=== PATIENT | female | born 1990 | race Caucasian/White ===

== ENCOUNTER 2021-12-05 23:48 | Emergency (ER) | payer BC ==
[~2021-12-05] VITALS: Ht 162.6 cm; Wt 65.9 kg
[2021-12-05] MEDS ORDERED: diphenhydrAMINE 50 mg/ml inj IM ONE (23:50)
[2021-12-05] MEDS ORDERED: LORazepam 2 mg/ml vial IM ONE (23:50)
[2021-12-05] MEDS ORDERED: haloperidol lactate 5mg/ml inj IM ONE (23:50)
[2021-12-06] MEDS ORDERED: MIDAZolam 5mg/ml 2ml vial IV ONE (00:05)
[2021-12-06 02:59] LABS: BASOPHILS % (AUTO) 0.4 % (0-1); EOSINOPHILS # (AUTO) 0.1 X10'3 (0-0.9); EOSINOPHILS % (AUTO) 1.2 % (0-6); HEMATOCRIT 35.7 % (35.0-45.0); HEMOGLOBIN 12.5 g/dl (12.0-16.0); LYMPHOCYTES # (AUTO) 1.6 X10'3 (1.1-4.8); LYMPHOCYTES % (AUTO) 26.3 % (21-51); MEAN CORPUSCULAR HEMOGLOBIN 33.2 PG (27.0-31.0); MEAN CORPUSCULAR VOLUME 94.9 FL (78-98); MEAN PLATELET VOLUME 6.3 FL (7.4-10.4); MONOCYTES # (AUTO) 0.6 X10'3 (0-0.9); MONOCYTES % (AUTO) 9.1 % (2-12); NEUTROPHILS # (AUTO) 3.8 X10'3 (1.8-7.7); PLATELET COUNT 274 X10'3 (140-440); RED BLOOD COUNT 3.76 X10'6 (4.20-5.60); RED CELL DISTRIBUTION WIDTH 13.7 % (11.5-14.5); WHITE BLOOD COUNT 6.1 X10'3 (4.5-11.0)
[2021-12-06 03:10] LABS: ALANINE AMINOTRANSFERASE 34 U/L (12-78); ALBUMIN 3.5 G/DL (3.4-5.0); ALBUMIN/GLOBULIN RATIO 1.2 (1.1-1.5); ALKALINE PHOSPHATASE 56 IU/L (46-116); ANION GAP 10 (8-16); ASPARTATE AMINO TRANSFERASE 28 U/L (10-37); BILIRUBIN,TOTAL 0.2 MG/DL (0.1-1.0); BLOOD UREA NITROGEN 12 MG/DL (7-18); BUN/CREATININE RATIO 18.5 (6.6-38.0); CALCIUM 8.4 MG/DL (8.5-10.1); CHLORIDE 108 MMOL/L (99-107); CREATININE 0.65 MG/DL (0.40-0.90); GLUCOSE 102 MG/DL (70-104); POTASSIUM 3.5 MMOL/L (3.5-5.1); SODIUM 142 MMOL/L (135-145); TOTAL PROTEIN 6.5 G/DL (6.4-8.2); eGFR > 90 ML/MIN
[2021-12-06 03:28] LABS: ETHANOL < 0.010 GM/DL (0.0-0.010)
[2021-12-06 08:39] VITALS: BP 121/81
[2021-12-06 09:59] LABS: CLARITY,URINE SLIGHTLY CLOUDY (Clear); COLOR,URINE YELLOW (Yellow); GLUCOSE, URINE NEGATIVE (Neg); KETONES,URINE NEGATIVE (Neg); LEUKOCYTE ESTERASE ,URINE NEGATIVE (Neg); NITRITES, URINE NEGATIVE (Neg); OCCULT BLOOD,URINE NEGATIVE (Neg); PROTEIN,URINE NEGATIVE (Neg); UROBILINOGEN,URINE 0.2 E.U/dL (0.2-1.0)
--- NOTE | 2021-12-06 10:00 | NUR ---
pt awake, appropriate, ambulated to br. tolerated well.
[2021-12-06 10:01] LABS: URINE HCG NEGATIVE (NEG)
[2021-12-06 10:02] LABS: UA COLLECTION TYPE CLN CATCH MIDSTREAM
[2021-12-06 10:05] LABS: BACTERIA,URINE 3+ /HPF (Neg); MUCUS STRANDS MODERATE /LPF (Neg); RBC,URINE NONE SEEN /HPF (0-2); SQUAMOUS EPITHELIAL CELL,UR MANY /LPF (FEW); WBC,URINE 0-4 /HPF (0-4)
[2021-12-06 10:12] LABS: URINE AMPHETAMINE SCREEN NEGATIVE (Neg); URINE BARBITUATE SCREEN NEGATIVE (Neg); URINE BENZODIAZEPINES SCREEN POSITIVE (Neg); URINE CANNABINOID SCREEN POSITIVE (Neg); URINE COCAINE SCREEN NEGATIVE (Neg); URINE METHADONE SCREEN NEGATIVE (Neg); URINE OPIATE SCREEN NEGATIVE (Neg); URINE PHENCYCLIDINE SCREEN NEGATIVE (Neg)
--- NOTE | 2021-12-06 12:01 | NUR ---
PACKET SENT [id number]
--- NOTE | 2021-12-06 13:30 | NUR ---
pt ate lunch with good appetite. 100%
== END 2021-12-06 14:47 | disposition home or self-care (01) ==
LOC: ER 23:48
DX: F31.2 Bipolar disorder, current episode manic severe with psychotic features (principal); F12.90 Cannabis use, unspecified, uncomplicated
CPT/HCPCS: 36415; 80053; 80305; 80320; 81001; 81025; 84443; 85025; 96372; 96374; 99284; J1200; J1630; J2250

== ENCOUNTER 2024-12-05 00:18 | Emergency (ER) | payer BC ==
[~2024-12-05] VITALS: Ht 154.9 cm; Wt 67.6 kg
[2024-12-05 00:27] VITALS: RESP 17
--- NOTE | 2024-12-05 00:35 | Physician Documentation ---
History of Present Illness ~ Stated Complaint: HIGH BP/SHAKES/VISION ISSUES Time Seen by MD: 00:27 HPI This is a 34-year-old female who was recently diagnosed with a hypotension, started on hypotensive med and clonidine, who presents for evaluation of markedly elevated blood pressure. She was not [facility], visiting with friends, when she developed a posterior headache, dizziness/disequilibrium, check her blood pressure and it was elevated. She continued to check going to continue to rise. Denies any chest pain, denies any difficulty breathing, denies any abdominal pain. She was worried that she might be having a stroke and presented to our emergency department. She denies any lateralizing signs when inquired in plain Latvian. She does not smoke, does not drink, does not do drugs Medication Reconciliation Allergies: Coded Allergies: No Known Allergies (Unverified , 12/06/21) Past Medical History Past Medical History: Bipolar Drug Use: marijuana Lives with: Spouse Lives In: Home Review of Systems ROS 10 point review of systems was performed and unless noted above in HPI is negative for acute process/complaint. Physical Exam Physical Exam GENERAL: Awake, alert, oriented, GCS 15, no apparent distress, non-toxic appearing, answers questions, follows commands appropriately. Examined in triage, accompanied by significant other HEENT: Atraumatic, normocephalic, pupils equal, extraocular muscles intact, sclerae anicteric, mucus membranes moist, oropharynx is clear, no stridor. NECK: supple, full active range of motion, trachea midline, no thyromegaly, no lymphadenopathy, no JVD. CARDIOVASCULAR: regular rate/rhythm, no murmurs/gallops/rubs, Pulses are 2+ in all extremities and symmetric. Capillary refill less than 2 seconds. PULMONARY: Nonlabored, good air movement ,no respiratory distress, speaking in full sentences, clear to auscultation bilaterally, no wheezing, no ronchi, no rales, no accessory muscle use. GASTROINTESTINAL: Soft, non-tender, non-distended, normal active bowel sounds, no organomegaly, no pulsatile masses, no CVA tenderness. NEUROLOGIC: Lucid with normal mental status. She has a preserved ischial symmetry, cranial nerves two through 12 are intact. Bilateral upper extremity and lower extremity 5/5 strength in all major muscle groups. Preserved sensation equal and symmetric. Normal [id number]. Normal gait. MUSCULOSKELETAL: There is full range of motion of all extremities. There is no joint pain or joint swelling or joint erythema. There is no muscle pain or tenderness or swelling. EXTREMITIES: warm, well-perfused, no cyanosis, no clubbing, no edema, no acute deformities. Skin: warm, dry, no rashes or lesions, no jaundice, no petechiae orpurpura. No ecchymosis. PSYCHIATRIC: Extremely anxious affect, normal insight, normal concentration. Focused exam: [] Progress Results/Orders Results/Orders Orders - ASPEN BHATIA DO Ct Head (12/05/24 00:29) Ketorolac Trometh 30mg/Ml Vial (Toradol (12/05/24 04:00) Completed Orders - ASPEN BHATIA DO Electrocardiogram (12/05/24 00:29) Cbc/Diff (12/05/24 00:29) PBNP (12/05/24 00:29) MG (12/05/24 00:29) Ct Head (12/05/24 00:) Hs Troponin I W Calculations (12/05/24 00:29) CMP (12/05/24 00:29) Hcg Serum Ql (12/05/24 00:29) Hcg, Ur Ql (12/05/24 00:29) Ethanol (12/05/24 00:29) Drug Screen, Urine (12/05/24 00:29) Ua W/Microscopic, Cult If Ind (12/05/24 00:41) Potassium Bicarb 20meq Eff Tab (Effer-K (12/05/24 02:00) Potassium Bicarb 20meq Eff Tab (Effer-K (12/05/24 02:00) Potassium Cl Sr Tablet (K-Dur Tablet) (12/05/24 02:54) Medications Received in ER Medications (Trade) Dose Ordered Sig/Lynne Route PRN Reason Start Time Stop Time Status Last Admin Dose Admin (K-DUR tablet) 60 meq ONCE STAT PO 12/05/24 02:54 12/05/24 02:55 DC 12/05/24 03:14 60 MEQ Vital Signs 12/05/24 12/05/24 12/05/24 00:27 02:45 02:56 Temp 97.8 97.8 Pulse 75 67 Resp 17 B/P (MAP) 188/117 150/101 (117) Pulse Ox 100 98 O2 Flow Rate 0 0 Laboratory Tests Test 12/05/24 00:41 12/05/24 00:45 Urine Specimen Description Cln catch midstream Urine Color Yellow Urine Clarity Clear Urine pH 7.0 Urine Specific [place] <=1.005 Urine Protein Negative Urine Glucose (UA) Negative Urine Ketones Negative Urine Occult Blood Trace-intact Urine Nitrite Negative Urine Bilirubin Negative Urine Urobilinogen 0.2 Urine Leukocyte Esterase Negative Urine RBC None seen Urine WBC None seen Urine Squamous Epithelial Cells Few Urine Bacteria None seen Urine Culture Indicated Not ind Volume Urine Centrifuged 10 ml Urine HCG, Qualitative Negative Urine Comment Urine Opiates Screen Negative Urine Methadone Screen Negative Urine Fentanyl Screen Negative Urine Barbiturates Screen Negative Urine Phencyclidine Screen Negative Urine Amphetamines Screen Negative Urine Benzodiazepines Screen Negative Urine Cocaine Screen Negative Urine Cannabinoids Screen Negative Drug Screen Comment White Blood Count 5.1 Red Blood Count 3.50 L Hemoglobin 12.3 Hematocrit 35.1 Mean Corpuscular Volume 100.3 H Mean Corpuscular Hemoglobin 35.1 H Mean Corpuscular Hemoglobin Concent 35.0 Red Cell Distribution Width 18.9 H Platelet Count 163 Mean Platelet Volume 6.1 L Neutrophils (%) (Auto) 69.9 Lymphocytes (%) (Auto) 21.9 Monocytes (%) (Auto) 6.8 Eosinophils (%) (Auto) 1.0 Basophils (%) (Auto) 0.4 Neutrophils # (Auto) 3.6 Lymphocytes # (Auto) 1.1 Monocytes # (Auto) 0.3 Eosinophils # (Auto) 0.1 Basophils # (Auto) 0.0 CBC Comment Platelet Estimate Normal Red Blood Cell Morphology Perf Basophilic Stippling Anisocytosis 1+ Macrocytosis 1+ Sodium Level 131 L Potassium Level 2.9 *L Chloride Level 95 L Carbon Dioxide Level 25.4 Anion Gap 11 Blood Urea Nitrogen 4 L Creatinine 0.58 Estimated GFR/1.73 m2 > 90 BUN/Creatinine Ratio 6.9 L Glucose Level 98 Calcium Level 8.5 Magnesium Level 1.9 Total Bilirubin 0.6 Aspartate Amino Transf (AST/SGOT) 101 H Alanine Aminotransferase (ALT/SGPT) 110 H Alkaline Phosphatase 68 Troponin I High Sensitivity 14 Pro-B-Type Natriuretic Peptide 256 H Total Protein 7.6 Albumin 3.6 Globulin 4.0 Albumin/Globulin Ratio 0.9 L Human Chorionic Gonadotropin, Qual Negative Chemistry Comments Ethyl Alcohol Level < 10 EKG/XRAY/CT/US/VASC/MRI EKG : Additional Comment EKG was obtained and interpreted by myself showing normal sinus rhythm of 71, normal AL interval, narrow QRS, no QT prolongation, normal axis, no STEMI. Medical Decision Making Findings Facility Status: ED Holds, E process The plan was discussed with the patient, who demonstrates clear understanding of the plan and is in agreement with the plan unless otherwise noted in the chart. All questions have been answered, all concerns were addressed unless otherwise documented. I was available throughout their ED stay for frequent reassessment and questions . Differential Diagnoses (considered and possible or likely): [Hypotensive episode with a known diagnosis of hypotension, hypertensive urgency, hypertensive emergency with a end-organ damage, less likely press syndrome given the fact that significant other denies any altered mental status episodes. No evidence of lateralizing sinuses suspect a stroke. Could potentially be clonidine withdrawal although less likely given the fact that she did take clonidine. No evidence of trauma. Unlikely to be intracranial neoplasm.] ??Differential Diagnoses (considered and unlikely, not requiring evaluation currently): [See above] MDM Data Please see [facility] for the following: Independent Historians and external Records Review. Historian: [Patient] Independent Historians: ?[Significant other] Medication Management: [Reviewed medication list] Social History and determinants: [Reviewed] Please see the body of the note for the following: Any independent interpretations of ECG, imaging studies. All vitals signs/haemodynamics, ordered tests were independently reviewed and interpreted by myself. Nursing triage complaint and vitals reviewed, additional nursing notes were reviewed as available and I agree unless otherwise noted or documented in contradiction in the chart Vital Signs: Independently reviewed Labs: Independently interpreted Imaging: Independently interpreted Old Medical Records: Independently reviewed, see [facility] for relevant summary and information Pulse Oximetry: [100% I] interpreted as [normal on room air] by me Additionally notably showing: [Hemodynamics reviewed. Initially hypotensive, blood pressure improved. No evidence of fever, tachycardic, hypotension respiratory distress. Laboratory studies show normal CBC, no leukocytosis, mild macrocytosis noted. Platelets are normal as well. Chemistry panel shows a hypokalemia of 2.9. Potassium was repleted. Mild transaminitis noted. BNP slightly elevated. Troponin is negative. Toxicology is negative for drugs of abuse and ethanol. UA is nondiagnostic for UTI. She is not . Advanced imaging of the head did not reveal any acute intracranial abnormality.] Tests considered but not ordered include: [Not applicable, exhaustive imaging was obtained. Exhaustive laboratory workup was obtained for presenting comp laint of elevated blood pressure.] Social Determinants of Health Impact: Patient was evaluated in [facility], or [facility] [place] access to healthcare due to below par ratio of patient to medical providers. [] Comorbid Conditions Impacting Present Evaluation and Care/Treatment: [Known history of hypotension, recent diagnosis] Management Discussions with other Healthcare Providers: [None] Treatment and Disposition Medication Management (Given or considered): []. See EMR for details Consideration for Hospitalization/Escalation/Deescalation of Care: Admission for observation has been considered, [however the patient is able to tolerate p.o., their symptoms are controlled, they are able to rely on oral medications, and their chief complaint/diagnosis can be managed on outpatient basis.] ?ED Course:?[No clinical deterioration.] Patient is feeling better. ?Shared decision making:?[Patient is hemodynamically stable for discharge home with follow with their primary care provider. [Discussed need for repeat labs in the mouth to evaluate for BNP and transaminitis elevation. ] Specific and cautious return precautions provided and discussed with full understanding. Any incidental findings were also discussed and follow up recommendations given. [] All questions answered. Patient/family were able to verbalize back return precautions. Patient/family agree to plan. Copies of imaging and laboratory studies were provided.] Code status:?FULL Please see the full Electronic Medical Record for full details of nursing documentation, medications list, other records of complete past medical history and conditions, vital signs, laboratory studies, and any radiologic study interpretations by radiologists. Portions of this note were completed using [employer] dictation software and as a result there may exist minor errors in spelling. I have reviewed elements of past family and social history and agree as included in note. Departure Disposition: 01 HOME / SELF CARE / HOMELESS Impression: Primary Impression: Hypertension Additional Impressions: Dizziness Occipital headache Condition: Improved Discharge Instructions: Dizziness, Hypertension, Adult Referrals: NO PRIMARY CARE PROVIDER (PCP) Education Educated: Patient, Family Educated regarding: diagnosis, treatment, prognosis, need for follow up Signature Scribe Signature: No scribe Attestation: This note accurately reflects clinical decisions, work performed by myself, DO JANNETTE Morel NICHOLAS M DO Dec 05, 2024 00:35
--- NOTE | 2024-12-05 00:39 | ELECTROCARDIOGRAPH REPORT ---
[facility] Test Date: 2024-12-05 Test Time: 00:36:27 Pat Name: PATRICIO FRANCOIS Department: [facility]-ER Patient ID: [id number] Room: Gender: F Cloud Operations Engineer: : 1990 Requested By: ASPEN BHATIA Order Number: [id number] Reading MD: Dr. Isaiah Aguiar Measurements Intervals [place] Rate: 71 P: 67 [place]: 198 QRS: 57 QRSD: 70 T: 53 QT: 387 QTc: 421 Interpretive Statements Sinus rhythm Left atrial enlargement RSR' in V1 or V2, probably normal variant Electronically Signed On 12-06-2024 21:23:[address] Isaiah Aguiar Please click the below link to view image of tracing.
[2024-12-05 00:55] LABS: LEUKOCYTE ESTERASE ,URINE NEGATIVE (Neg); NITRITES, URINE NEGATIVE (Neg); OCCULT BLOOD,URINE TRACE-INTACT (Neg)
[2024-12-05 00:56] LABS: MEAN PLATELET VOLUME 6.1 FL (7.4-10.4); RED CELL DISTRIBUTION WIDTH 18.9 % (11.5-14.5)
[2024-12-05 00:57] LABS: URINE HCG NEGATIVE (NEG)
[2024-12-05 00:58] LABS: UA COLLECTION TYPE CLN CATCH MIDSTREAM
[2024-12-05 01:00] LABS: SQUAMOUS EPITHELIAL CELL,UR FEW /LPF (FEW)
[2024-12-05 01:06] LABS: HCG SERUM QL NEGATIVE
[2024-12-05 01:07] LABS: URINE AMPHETAMINE SCREEN NEGATIVE (Neg); URINE BARBITUATE SCREEN NEGATIVE (Neg); URINE BENZODIAZEPINES SCREEN NEGATIVE (Neg); URINE CANNABINOID SCREEN NEGATIVE (Neg); URINE COCAINE SCREEN NEGATIVE (Neg); URINE METHADONE SCREEN NEGATIVE (Neg); URINE OPIATE SCREEN NEGATIVE (Neg); URINE PHENCYCLIDINE SCREEN NEGATIVE (Neg)
[2024-12-05 01:15] LABS: CREATININE 0.58 MG/DL (0.40-0.90); ETHANOL < 10 MG/DL (<10); PRO BRAIN NATRIURETIC PEPTIDE 256 PG/ML (0-125); TOTAL CARBON DIOXIDE 25.4 MMOL/L (24-32); eCRCL 103 ML/MIN; eGFR > 90 ML/MIN
--- NOTE | 2024-12-05 01:19 | RADIOLOGY REPORT ---
CT CT HEAD INDICATION: New onset disequilibrium COMPARISON: None TECHNIQUE: CT of the head without intravenous contrast. RADIATION DOSE: CTDIvol: mGy, DLP: mGy*cm FINDINGS: No evidence of intracranial hemorrhage, infarct, extra-axial collection, mass effect, midline shift or herniation. Ventricles, sulci and cisterns are normal with no hydrocephalus. Perales-white differenti ation is normal. Very small mucus retention cyst in right maxillary sinus; visualized paranasal sinuses are otherwise unremarkable. Mastoid air cells and middle ear cavities are clear. Orbits appear unremarkable. Soft t issues and osseous structures are unremarkable. IMPRESSION: No intracranial abnormality identified.
[2024-12-05] MEDS ORDERED: POTASSIUM BICARB 20meq eff tab 20 MEQ TABLET.EFF PO SCH (02:00)
[2024-12-05] MEDS: POTASSIUM BICARB 20meq eff tab 20 MEQ TABLET.EFF PO ONE (02:56)
[2024-12-05 02:58] LABS: PLATELET ESTIMATE NORMAL
[2024-12-05] MEDS: potassium Cl 20 mEq SR tablet PO STA (03:14)
[2024-12-05 03:58] VITALS: BP 134/89; PULSE 73; O2SAT 98
[2024-12-05] MEDS: ketorolac trometh 30MG/ML vial 30 MG/ML VIAL IV ONE (04:07)
[2024-12-05 04:10] VITALS: TEMP 97.8
== END 2024-12-05 04:12 | disposition home or self-care (01) ==
LOC: ER 00:19
DX: I10 Essential (primary) hypertension (principal); R42 Dizziness and giddiness; R51.9 Headache, unspecified; F31.9 Bipolar disorder, unspecified; F12.90 Cannabis use, unspecified, uncomplicated
CPT/HCPCS: 70450; 80053; 80305; 80320; 81001; 81025; 83735; 83880; 84484; 84703; 85008; 85025; 93005; 96374; 99285; J1885